=== PATIENT | female | born 1980 | race Caucasian/White ===

== ENCOUNTER 2020-10-20 22:56 | Emergency (ER) | payer SELFPAY ==
[~2020-10-20] VITALS: Ht 157.5 cm; Wt 77.1 kg
[2020-10-20 22:56] VITALS: BP 142/79
[2020-10-21] MEDS ORDERED: ZOLP5TAB2 PO
--- NOTE | 2020-10-21 00:42 | NUR ---
Patient discharged to home in stable condition. Written and verbal after care instructions given. Patient verbalizes understanding of instruction.
--- NOTE | 2020-10-21 00:49 | NUR ---
Patient is ambulatory with a steady gait.
[2020-10-21] MEDS ORDERED: ALBU18HF2 IH (15:48)
[2020-10-21] MEDS ORDERED: LURA40TA PO (15:48)
== END 2020-10-21 02:23 | disposition home or self-care (01) ==
LOC: ER 23:01
DX: G47.00 Insomnia, unspecified (principal)

== ENCOUNTER 2020-10-21 14:50 | Inpatient (IN) | payer SELFPAY ==
[~2020-10-21] VITALS: Ht 157.5 cm; Wt 81.6 kg
[~2020-10-21 14:50] MED LIST: ZOLP5TAB2 PO
--- NOTE | 2020-10-21 15:00 | NUR ---
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 On room aiar, breathing eveenly and unlabored. Connected to the monitor and pulse ox. kept comfortable, will continue to monitor accordingly.
--- NOTE | 2020-10-21 15:08 | NUR ---
BS 105
[2020-10-21] MEDS ORDERED: LURA40TA PO (15:48)
[2020-10-21] MEDS ORDERED: ALBU18HF2 IH (15:48)
[2020-10-21] MEDS ORDERED: ONDANSETRON HCL/PF 4 MG/2 ML VIAL IVP PRN (16:00)
[2020-10-21] MEDS ORDERED: ZOLPIDEM TARTRATE 5 MG TABLET PO PRN (16:00)
[2020-10-21] MEDS ORDERED: Z GUARD REMEDY 2 OZ OINT TP PRN (16:00)
[2020-10-21] MEDS ORDERED: MAGNESIUM HYDROXIDE 30 ML UDC PO PRN (16:00)
[2020-10-21] MEDS ORDERED: MAG HYDROX/AL HYDROX/SIMETH 30 ML UDC PO PRN (16:00)
[2020-10-21] MEDS ORDERED: ACETAMINOPHEN 325 MG TABLET PO PRN (16:00)
[2020-10-21] MEDS ORDERED: IV 10% DEXTROSE 1,000 ML IV ONE (16:00)
[2020-10-21] MEDS ORDERED: Sodium Chloride 77 MEQ in IV 10% DEXTROSE 1,000 ML IV PRN (16:00)
[2020-10-21 16:10] LABS: BASOPHILS # (AUTO) 0.1 K/uL (0.0-0.2); BASOPHILS % (AUTO) 0.8 % (0.0-2.0); EOSINOPHILS % (AUTO) 7.3 % (0.0-6.0); HEMATOCRIT 42 % (33-45); HEMOGLOBIN 13.9 g/dL (11.5-14.8); LYMPHOCYTES # (AUTO) 2.8 K/uL (0.8-4.8); MEAN CORPUSCULAR HGB CONC 34 g/dl (31.0-36.0); MEAN CORPUSCULAR VOLUME 88 fL (82-100); MONOCYTES # (AUTO) 0.5 K/uL (0.1-1.30); MONOCYTES % (AUTO) 8.1 % (2.0-12.0); NEUTROPHILS # (AUTO) 2.7 K/uL (1.8-8.9); NEUTROPHILS % (AUTO) 41.8 % (43.0-81.0); PLATELET COUNT (AUTO) 335 K/uL (150-450); RED BLOOD CELL COUNT(AUTO) 4.72 MIL/uL (4.0-5.2); WHITE BLOOD COUNT (AUTO) 6.6 K/uL (4.3-11.0)
--- NOTE | 2020-10-21 16:10 | NUR ---
PER PATIENT SHE DOES NOT TALK TO HER MOM, SHE DOESNT WANT TO DISCLOSE ANY INFORMATION TO HER MOM.
[2020-10-21 16:27] LABS: CALCIUM, SERUM 8.9 mg/dL (8.5-10.1); CARBON DIOXIDE 26 mmol/L (21-32); CHLORIDE 105 mmol/L (98-107); CREATININE 1.2 mg/dL (0.6-1.3); GLUCOSE 81 mg/dL (74-106); POTASSIUM 3.6 mmol/L (3.5-5.1); SODIUM SERUM 140 mmol/L (136-145); UREA NITROGEN, BLOOD 14 mg/dL (7-18)
[2020-10-21 16:44] LABS: ACETAMINOPHEN 0 ug/ml (10-30); ALANINE AMINOTRANSFERASE 67 U/L (12-78); ALBUMIN 3.6 g/dL (3.4-5.0); ALKALINE PHOSPHATASE 53 U/L (46-116); ASPARTATE AMINOTRANSFERASE 52 U/L (15-37); BILIRUBIN,DIRECT 0.1 mg/dL (0.0-0.2); BILIRUBIN,TOTAL 0.5 mg/dL (0.2-1.0); TOTAL PROTEIN, SERUM 7.1 g/dL (6.4-8.2)
[2020-10-21 16:45] LABS: ALCOHOL, BLOOD < 3 mg/dL (0-0)
--- NOTE | 2020-10-21 16:52 | NUR ---
received a call from poison control (manny) and gave updated patient vital signs and mental status and aware of all lab results.
--- NOTE | 2020-10-21 17:17 | NUR ---
RECEIVED ORDER FROM DR. PEREZ TO MONITOR ACCUCHECK EVERY HOUR. ORDER IN PLACED.
[2020-10-21 18:16] LABS: BILIRUBIN,URINE NEGATIVE (NEGATIVE); COLOR,URINE YELLOW (YELLOW); LEUKOCYTE ESTERASE ,URINE MODERATE (NEGATIVE); NITRITE, URINE NEGATIVE (NEGATIVE); PH,URINE 5.5 (5.0-8.0); PROTEIN,URINE TRACE mg/dl (NEGATIVE); UGLUCOSE NEGATIVE (NEGATIVE); UROBILINOGEN,URINE 0.2 EU/dL (0.2)
[2020-10-21 18:25] LABS: BACTERIA,URINE 4+ /HPF (None Seen); RBC,URINE 21-50 /HPF (0-2); SQUAMOUS EPITHELIAL CELL,UR 21-50 /HPF (None Seen); WBC,URINE 51-80 /HPF (0-3)
--- NOTE | 2020-10-21 18:43 | NUR ---
NURSING SUP GAVE 304-2. PER NURSING SUP PLEASE TRANSPORT PATIENT AFTER SHIFT.
--- NOTE | 2020-10-21 19:17 | NUR ---
report given to Serenity SANFORD for iza.
[2020-10-21] MEDS ORDERED: CEFTRIAXONE 1GM BAG (ER ONLY) 50 ML IV ONE (19:18)
--- NOTE | 2020-10-21 19:27 | NUR ---
IVF D10 increase @ 125ml/hr per MD order.
--- NOTE | 2020-10-21 19:27 | NUR ---
report given to Bernardino SANFORD for iza.
[2020-10-21] MEDS ORDERED: CEFTRIAXONE 1GM BAG (ER ONLY) 1 GM/50 ML PIGGYBACK IV ONE (19:30)
--- NOTE | 2020-10-21 20:35 | NUR ---
SPOKE TO PT REGARDING HOME MEDS. DOES NOT TAKE ANY MEDICATIONS AT HOME. AAOX4. AWARE SHE WILL BE ADMITTED.
--- NOTE | 2020-10-21 20:40 | NUR ---
REPORT GIVEN TO RN FOR FUENTES. PT WILL BE TRANSFERED.
--- NOTE | 2020-10-21 20:54 | NUR ---
PT TRANSFERED PER [facility]S PROTOCOL
[2020-10-21 21:00] VITALS: BP 125/71
--- NOTE | 2020-10-21 21:20 | NUR ---
RN NOTES ADMITTED 40 YEARS OLD FEMALE PATIENT, AOX4 VERBALLY RESPONSIVE. DX OF INSUILIN OVERDOSE , BY GIVING HERSELF 4 SYRINGES (40ml) OF HER DOGS INSULIN AND GESTURED TO HURT HERSELF. PATIENT AMBULATE FROM STRETCHER TO BED CONNECTED TO TELE MONITOR WITH SR HR ON 70'S AFEBRILE. VSS. WITH INTACT SKIN. IV SITE ON RAC G 18 AND LFA G 18 WITH D10 @ 125 INTACT AND PATENT. KEPT PT CLEAN AND COMFORTABLE IN BED. BED LOCKED SECURED AND IN LOWEST POSSIBLE POSITION.
[2020-10-21 22:00] VITALS: BP 115/72
[2020-10-21 22:30] VITALS: BP 125/79
[2020-10-21 23:00] VITALS: BP 127/79
[2020-10-22] VITALS (15 sets, daily range): BP systolic 104–136; BP diastolic 54–90
[2020-10-22] MEDS: BLOOD SUGAR DIAGNOSTIC 1 EACH STRIP IN SCH ×12 (00:19→11:03)
--- NOTE | 2020-10-22 03:30 | NUR ---
RN NOTES PATIENT ASLEEP WELL AND REMAINED COMPLIANT, ENCOURAGED TO URINATE BUT PATIENT WANT S TO SLEEP MORE. CONTINUE WITH ACCUCHECK Q1H PER ORDER.
[2020-10-22 04:31] LABS: BASOPHILS # (AUTO) 0.1 K/uL (0.0-0.2); BASOPHILS % (AUTO) 1.1 % (0.0-2.0); EOSINOPHILS % (AUTO) 8.7 % (0.0-6.0); HEMATOCRIT 42 % (33-45); HEMOGLOBIN 14.1 g/dL (11.5-14.8); LYMPHOCYTES # (AUTO) 3.3 K/uL (0.8-4.8); LYMPHOCYTES % (AUTO) 45.6 % (20.0-44.0); MEAN CORPUSCULAR HGB CONC 34 g/dl (31.0-36.0); MEAN CORPUSCULAR VOLUME 88 fL (82-100); MONOCYTES # (AUTO) 0.6 K/uL (0.1-1.30); MONOCYTES % (AUTO) 8.7 % (2.0-12.0); NEUTROPHILS # (AUTO) 2.6 K/uL (1.8-8.9); NEUTROPHILS % (AUTO) 35.9 % (43.0-81.0); PLATELET COUNT (AUTO) 317 K/uL (150-450); RED BLOOD CELL COUNT(AUTO) 4.75 MIL/uL (4.0-5.2); WHITE BLOOD COUNT (AUTO) 7.2 K/uL (4.3-11.0)
[2020-10-22 04:47] LABS: ALBUMIN 3.1 g/dL (3.4-5.0); BILIRUBIN,TOTAL 0.2 mg/dL (0.2-1.0); CALCIUM, SERUM 8.4 mg/dL (8.5-10.1); CREATININE 0.8 mg/dL (0.6-1.3); MAGNESIUM 2.1 mg/dL (1.8-2.4); PHOSPHORUS 5.1 mg/dL (2.5-4.9); POTASSIUM 3.3 mmol/L (3.5-5.1); TOTAL PROTEIN, SERUM 6.7 g/dL (6.4-8.2)
--- NOTE | 2020-10-22 05:30 | NUR ---
RN NOTES PATIENT WANTED TO URINATE AND OFFERED BEDSIDE COMMODE AND WERE ANTONIA TO CLOSE THE CURTAIN AND THE DOOR FOR HER PRIVACY, EXPLAINED THAT SHE IS IN ICU AND THERES NO BATHROOM FOR HER TO GO. AND ALSO FOR HER SAFETY. PATIENT IS NON COMPLIANT TO COMMODE, INSISTED TO GO TO THE BATHROOM. INFORMED CHARGE NURSE AND LET PATIENT GO TO CLOSE BATHROOM THAT SHE CAN USE WITH STRICTLY OBSERVATION SECONDARY TO SI. NO SI NOTED. ASSISTED BACK TO BED IN STABLE CONDITION.
--- NOTE | 2020-10-22 07:20 | NUR ---
RN NOTES PATIENT ASLEEP WELL. AFEBRILE. VSS. NO ACUTE RESPIRATORY DISTRESS IN ROOM AIR SATURATION REMAINED >95%. CONTINUE ON ACCUCHECKED Q1H. NO SUICIDAL IDEATION PRESENT. PATIENT IS CALM AND COHERENT AND COOPERATIVE. ALL NEEDS ATTENDED. ASLEEP WELL. ENDORSED CONTINUITY OF CARE TO AM NURSE.
[2020-10-22] MEDS ORDERED: IV 10% DEXTROSE 1,000 ML IV PRN (07:30)
--- NOTE | 2020-10-22 07:30 | NUR ---
rn notes patient bs-117 mg/dl no coverage given, patient calm and cooperative, tolerated breakfast well, 1;1 sitter next to the bed for safety. call light within to reach. will monitoring.
--- NOTE | 2020-10-22 08:30 | NUR ---
RN NOTES SEEN PATIENT VIA HOSPITALIST Dr MCCALL, GET TO ORDER PSYCH CONSULTS. ORDER TAKEN AND CARRIED OUT.
[2020-10-22] MEDS ORDERED: POTASSIUM CHLORIDE 20 MEQ TAB.PRT.SR PO SCH (09:30)
--- NOTE | 2020-10-22 10:18 | NUR ---
rn notes patient will transfer to the med/surge unit for follow up. paint denied SI/HI/AVH AT THI TIME. BS-139 mg/dl. patient resting in the bed , 1:1 sitter next to the bed for safety.
--- NOTE | 2020-10-22 11:15 | NUR ---
RN NOTES TRANSFERRED PATIENT TO THE MED/SURGE UNIT. PATIENT A/O X3, STABLE , REFUSED SI/HI,AVH AT THIS TIME, BS-118 MG/DL, INFUSING D10W AT 50ML /HR ON LEFT FA INTACT. CONTRABAND GIVEN RN FOR SAFETY. SITTER IN THE BEDSIDE FOR SAFETY WELL. REPORT GIVEN BEDSIDE TO THE RN FOLLOW UP PLAN OF CARE.
--- NOTE | 2020-10-22 11:30 | NUR ---
ROLLER SKATE ASSEMBLER NOTE RECEIVED PATIENT VIA WHEELCHAIR. PATIENT IS A/O X4. PATIENT IS BREATHING EVENLY AND NONLABORED ON ROOM AIR. NO SIGNS OF DISTRESS NOTED. PATIENT DOES NOT COMPLAIN OF PAIN AT THIS TIME. PATIENT HAS IV ACCESS ON LFA #18 GAUGE AND RAC #18 PATENT AND INTACT. SAFETY MEASURES ARE IN PLACE, BED LOW LOCKED CALL LIGHT WITHIN REACH, SITTER AT BEDSIDE. WILL CONTINUE TO MONITOR
[2020-10-22] MEDS ORDERED: BLOOD SUGAR DIAGNOSTIC 1 EACH STRIP IN SCH (12:00)
--- NOTE | 2020-10-22 18:24 | NUR ---
MS RN CLOSING NOTE PATIENT RESTING IN BED. PATIENT IS A/O X4. PATIENT IS BREATHING EVENLY AND NONLABORED ON ROOM AIR. NO SIGNS OF DISTRESS NOTED. PATIENT DOES NOT COMPLAIN OF PAIN AT THIS TIME. PATIENT HAS IV ACCESS ON RAC #18 PATENT AND INTACT. ALL MEDICATIONS GIVEN ORDERED. PATIENT CONTINUES TO BE ON HOLD. SAFETY MEASURES ARE IN PLACE, BED LOW LOCKED CALL LIGHT WITHIN REACH, SITTER AT BEDSIDE. WILL ENDORSE TO ONCOMING SHIFT
--- NOTE | 2020-10-22 19:51 | NUR ---
MS RN OPENING NOTE PATIENT A/OX4; ABLE TO MAKE NEEDS KNOWN. TOLERATING ROOM AIR WELL WITH NO SOB. DENIES PAIN OR DISCOMFORT AT THIS TIME. RAC#18G S//; PATENT AND INTACT. SAFETY MEASURES IN PLACE: BED IN LOWEST LOCKED POSITION, SIDE RAILS UPX2, CALL LIGHT WITHIN EASY REACH, 1:1 SITTER AT BED SIDE. PATIENT IN STABLE CONDITION, WILL CONTINUE PLAN OF CARE.
--- NOTE | 2020-10-22 20:46 | NUR ---
MS RN NOTE VAZQUEZ FROM POISON CONTROL CALLED FOR UPDATE ON PATIENT, NOTIFIED VAZQUEZ ON PATIENT'S LABS
[2020-10-23 06:41] LABS: CALCIUM, SERUM 8.7 mg/dL (8.5-10.1); CREATININE 0.8 mg/dL (0.6-1.3)
--- NOTE | 2020-10-23 07:10 | NUR ---
RN OPENING NOTE RECEIVED PATIENT IN BED. A/O X4. NO SOB NOTED. IN NO APPARENT DISTRESS. DENIES ANY PAIN OR DISCOMFORT AT THIS TIME. ON 5150 HOLD, DENIES SI/HI AT THIS TIME. IV ACCESS ON R AC #18 G, INTACT AND PATENT. SAFETY MEASURES MAINTAINED. BED IN LOWEST POSITION, BRAKES LOCKED. SIDE RAILS UP X2. CALL LIGHT WITHIN REACH. WILL CONTINUE PLAN OF CARE.
--- NOTE | 2020-10-23 07:35 | NUR ---
MS RN CLOSING NOTE PATIENT A/OX4; ABLE TO MAKE NEEDS KNOWN. TOLERATING ROOM AIR WELL WITH NO SOB. DENIES PAIN OR DISCOMFORT AT THIS TIME. RAC#18G S/L/; PATENT AND INTACT. SAFETY MEASURES IN PLACE: BED IN LOWEST LOCKED POSITION, SIDE RAILS UPX2, CALL LIGHT WITHIN EASY REACH, 1:1 SITTER AT BED SIDE. PATIENT IN STABLE CONDITION, ENDORSED PLAN OF CARE TO ON COMING MORNING RN.
--- NOTE | 2020-10-23 18:04 | NUR ---
RN CLOSING NOTE PATIENT RESTING IN BED. A/O X4. NO SOB NOTED. NO S/S OF RESPIRATORY DISTRESS. NO REPORTS OF ANY PAIN OR DISCOMFORT AT THIS TIME. ON 5150 HOLD, STILL DENIES SI/HI AT THIS TIME. IV ACCESS ON R AC #18 G, INTACT AND PATENT. ALL NEEDS HAVE BEEN MET AND ATTENDED. SAFETY MEASURES MAINTAINED. BED IN LOWEST POSITION, BRAKES LOCKED. SIDE RAILS UP X2. KEPT CALL LIGHT WITHIN REACH. WILL ENDORSE CONTINUITY OF CARE TO ONCOMING SHIFT.
[2020-10-23 20:00] VITALS: BP 136/78
--- NOTE | 2020-10-23 20:40 | NUR ---
MSRN RESTING QUIETLY, NO VERBAL RESPONSE. SITTER AT BEDSIDE. NO NEEDS AT THIS TIME. KEPT COMFORTABLE. CONTINUED MONITORING.
--- NOTE | 2020-10-24 03:51 | NUR ---
MSRN REMAINS UNCHANGED, BEHAVIOR CALM AND QUIET
[2020-10-24 06:03] LABS: BASOPHILS % (AUTO) 0.7 % (0.0-2.0); EOSINOPHILS % (AUTO) 7.4 % (0.0-6.0); HEMATOCRIT 42 % (33-45); HEMOGLOBIN 14.1 g/dL (11.5-14.8); LYMPHOCYTES # (AUTO) 3.2 K/uL (0.8-4.8); LYMPHOCYTES % (AUTO) 42.4 % (20.0-44.0); MEAN CORPUSCULAR HGB CONC 34 g/dl (31.0-36.0); MEAN CORPUSCULAR VOLUME 88 fL (82-100); MONOCYTES # (AUTO) 0.6 K/uL (0.1-1.30); MONOCYTES % (AUTO) 8.3 % (2.0-12.0); NEUTROPHILS # (AUTO) 3.1 K/uL (1.8-8.9); NEUTROPHILS % (AUTO) 41.2 % (43.0-81.0); PLATELET COUNT (AUTO) 324 K/uL (150-450); RED BLOOD CELL COUNT(AUTO) 4.78 MIL/uL (4.0-5.2); WHITE BLOOD COUNT (AUTO) 7.6 K/uL (4.3-11.0)
--- NOTE | 2020-10-24 06:43 | NUR ---
MSRN REMAINS CALM AND COOPERATIVE, NO OTHER NEEDS MADE. DENIES SUICIDAL THOUGHTS OF NOW.
[2020-10-24 07:58] LABS: CALCIUM, SERUM 8.2 mg/dL (8.5-10.1); CREATININE 0.8 mg/dL (0.6-1.3); POTASSIUM 3.7 mmol/L (3.5-5.1)
--- NOTE | 2020-10-24 11:05 | NUR ---
Operator Helper consult: Social service consult requested for overdose. Patient is a 40-year-old, female. SW met with patient at her bedside in the med-surg unit. Patient presented alert and oriented x4. Patient was calm and resting. Patients mood was euthymic. Patient was brought in by self on 10/21/20, presenting with suicidal ideation and reported that she took an unknown amount of her dogs insulin. Patient is currently living with a roommate at [address], [place] [address]; [phone]. Patient provided SW with contact information for her family, (Grandmother-Imani, & Brother-Reyes, ). SW asked patient about the situation which brought her into the hospital. Patient stated, I took my dogs insulin. Patient stated that she was unaware of why she took her dogs insulin and denied that it was an attempt to harm herself. Patient denied current suicidal and homicidal ideation. Patient reported a history of Bipolar Disorder and stated that she has not been taking psychiatric medication. Patient reported that she was previously taking Latuda but stopped taking medication after she recently relocated. Patient stated, I will go back on my meds. It will help me. Patient stated that she has been seeing an outpatient therapist regularly. SW asked the patient if she has a history of substance use. Patient denied history of substance use. Per toxicology report, patient is positive for amphetamine and opiate use. SW offered the patient outpatient mental health resources. Patient accepted the resources and thanked SW. SW discussed discharge plans with the patient. Patient stated that she plans to live with her grandmother, Imani for some time for social support. Patient stated that her brother, Reyes will provide transportation at the time of discharge. PLAN: Patient plans to live with family at the time of discharge. No further SS intervention at this time, however, SW will remain available as needed. RESOURCES: Counseling--Outpatient [facility] [address], [place] [address] (Specializes in in-depth psychotherapy for emotional distress: anxiety, depression, interpersonal conflicts, life transitions, childhood abuse) PSYCHIATRIC OUTPATIENT SERVICES [facility] Partial Hospitalization and Intensive Outpatient Program ([facility]) [address] [facility] [address] [facility] Partial Hospitalization and Outpatient Program [address] [place], [place] [id number] [facility] Partial Hospitalization and Outpatient Program [address] [place], [place] [id number] [facility] [address] [place] [address] [facility] Partial Hospitalization and Outpatient Program [address] [place], [place] [phone]
--- NOTE | 2020-10-24 13:57 | NUR ---
RN NOTES DISCHARGE INSTRUCTIONS AND EDUCATION PROVIDED TO PATIENT; VERBALIZED UNDERSTANDING. PATIENT SIGNED DISCHARGE FORM AND BELONGINGS LIST FORM; ALL BELONGINGS ACCOUNTED FOR. PATIENT TO CALL BROTHER FOR APPROXIMATE TIME OF PICK-UP.
--- NOTE | 2020-10-24 14:07 | NUR ---
RN NOTES PER PATIENT, BROTHER WILL PICK HER UP AFTER 1600.
--- NOTE | 2020-10-24 15:15 | NUR ---
DISCHARGE NOTES PATIENT WAS DISCHARGED TO MOTHER. IV LINE IN RIGHT ANTECUBITAL REMOVED WITH NO BLEEDING. PATIENT DENIED ANY PAIN OR DISCOMFORT. NO SKIN ISSUES. PATIENT DISCHARGED WITH ALL ITEMS ACCOUNTED FOR. PROVIDED PATIENT WITH DISCHARGE INSTRUCTIONS. SIGNED AND PROVIDED PATIENT WITH DISCHARGE PAPERWORK.
== END 2020-10-24 15:32 | disposition home or self-care (01) | DRG 917 ==
LOC: ER 14:54 → ICU 20:30 → TELE 10-22 11:11 → MED 10-22 11:30
PROVIDERS: ADMIT Internal Medicine; ATTEND Family Medicine
DX: T38.3X2A Poisoning by insulin and oral hypoglycemic [antidiabetic] drugs, intentional self-harm, initial encounter (principal); G92 Toxic encephalopathy; F31.30 Bipolar disorder, current episode depressed, mild or moderate severity, unspecified; N39.0 Urinary tract infection, site not specified; Y92.89 Other specified places as the place of occurrence of the external cause; J42 Unspecified chronic bronchitis; J45.909 Unspecified asthma, uncomplicated; Z87.891 Personal history of nicotine dependence; Z79.51 Long term (current) use of inhaled steroids; Z79.899 Other long term (current) drug therapy; F15.90 Other stimulant use, unspecified, uncomplicated; F12.90 Cannabis use, unspecified, uncomplicated
CPT/HCPCS: 36415; 71045-TC; 80048-TC; 80053-TC; 80061-TC; 80076-TC; 81001; 82962-TC; 83735-TC; 84100-TC; 84484-TC; 84703-TC; 85025-TC; 87081-TC; 87086-TC; C9803; G0378; G0480; J0696; J3490; J7050